=== PATIENT | female | born 1985 | race Caucasian/White ===

== ENCOUNTER 2019-03-14 11:48 | Day surgery (SDC) | payer OTHER ==
[2019-03-11 16:14] VITALS: BMI 26.6
[~2019-03-14 11:48] MED LIST: LIDOCAINE HCL 1%, 10 MG/ML (20ML VIAL) INF ONE
[2019-03-14] MEDS ORDERED: LIDOCAINE HCL 1%, 10 MG/ML (20ML VIAL) ONE (12:41)
[2019-03-14] MEDS ORDERED: MINERAL OIL 25 ML OIL ONE (13:01)
[2019-03-14] MEDS ORDERED: BACITRACIN 15 GM TUBE TOPICAL OINTMENT ONE (13:01)
[2019-03-14] MEDS ORDERED: PROPOFOL 20 ML ONE (14:00)
[2019-03-14] MEDS ORDERED: MIDAZOLAM HCL 2 MG/2 ML SINGLE DOSE VIAL ONE (14:01)
[2019-03-14] MEDS ORDERED: LIDOCAINE HCL 2% 100 MG/5 ML DISP.SYRIN ONE (14:29)
[2019-03-14] MEDS ORDERED: HYDROmorphone HCl 2 MG/ML VIAL ONE (14:41)
[2019-03-14] MEDS ORDERED: SUCCINYLCHOLINE CHLORIDE 200 MG/10 ML SYRINGE ONE (14:43)
[2019-03-14] MEDS ORDERED: LIDOCAINE HCL 1%, 10 MG/ML (20ML VIAL) INF ONE ×2 (14:44→14:54)
[2019-03-14] MEDS ORDERED: EPHEDRINE SULFATE/0.9% NACL/PF 50 MG/10 ML SYRINGE NR ONE (14:49)
[2019-03-14] MEDS ORDERED: BUPIVACAINE HCL/PF 0.25% (2.5MG/ML) 10 ML VIAL ONE (14:51)
[2019-03-14] MEDS ORDERED: BUPIVACAINE HCL/PF 0.25% (2.5MG/ML) 10 ML VIAL IJ ONE (14:54)
[2019-03-14] MEDS ORDERED: MINERAL OIL 25 ML OIL TP ONE (14:54)
[2019-03-14] MEDS ORDERED: oxyCODONE HCL 5 MG TABLET PO PRN (16:03)
[2019-03-14] MEDS ORDERED: ONDANSETRON 4 MG/2 ML VIAL IVPUSH PRN (16:03)
[2019-03-14] MEDS ORDERED: oxyCODONE HCL 5 MG TABLET PO ONE ×2 (16:15→16:35)
[2019-03-14] MEDS ORDERED: ACETAMINOPHEN 325 MG TABLET (FP) PO ONE (16:15)
[2019-03-14] MEDS ORDERED: LACTATED RINGERS SOLUTION 1,000 ML IV SCH (16:15)
[2019-03-14] MEDS ORDERED: oxyCODONE HCL 5 MG TABLET ONE (16:35)
[2019-03-14 17:19] VITALS: PULSE 83
[2019-03-14 18:03] VITALS: BP 136/79; TEMP 97.6
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
== END 2019-03-14 18:40 | disposition home or self-care (01) ==
LOC: JASUSAT 11:48
PROVIDERS: ATTEND Plastic Surgery
PROC: 0HB8XZZ Excision of Buttock Skin, External Approach (ICD-10-PCS; 2019-03-14)
PROC: 0JB70ZZ Excision of Back Subcutaneous Tissue and Fascia, Open Approach (ICD-10-PCS; 2019-03-14)
PROC: 0HR6X74 Replacement of Back Skin with Autologous Tissue Substitute, Partial Thickness, External Approach (ICD-10-PCS; principal; 2019-03-14 14:00)
DX: T21.33XA Burn of third degree of upper back, initial encounter (principal); T31.0 Burns involving less than 10% of body surface; X16.XXXA Contact with hot heating appliances, radiators and pipes, initial encounter; Y93.89 Activity, other specified; Y92.009 Unspecified place in unspecified non-institutional (private) residence as the place of occurrence of the external cause
CPT/HCPCS: 81025; 87070; 87205; 94760

== ENCOUNTER 2019-11-23 12:54 | Emergency (ER) | payer OTHER ==
[2019-11-23 13:00] VITALS: BP 111/75; PULSE 92; TEMP 98.3; BMI 29.0
[2019-11-23] MEDS ORDERED: diazePAM 5 MG TABLET PO ONE (14:26)
[2019-11-23] MEDS ORDERED: KETOROLAC TROMETHAMINE 60 MG/2 ML VIAL IM ONE (14:26)
[2019-11-23] MEDS ORDERED: KETOROLAC TROMETHAMINE 60 MG/2 ML VIAL ONE (14:27)
[2019-11-23] MEDS ORDERED: diazePAM 5 MG TABLET ONE (14:27)
--- NOTE | 2019-11-23 15:07 | PDOC ---
History of Present Illness - General Chief Complaint: Back Pain Stated Complaint: Fall, back pain Time Seen by Provider: 11/23/19 13:02 - History of Present Illness Initial Comments: 11/23/19 15:01 34-year-old female with mood disorder and GERD presents for evaluation of lower back pain with posterior lateral right right leg radicular symptoms no systemic symptoms no loss of bowel or bladder function or saddle paresthesias no urinary retention or incontinence Past History - Medical History Allergies/Adverse Reactions: Allergies Allergy/AdvReac Type Severity Reaction Status Date / Time Penicillins AdvReac Severe STOMACH Verified 11/23/19 13:00 PAIN lactose AdvReac Unknown ABDOMINAL Verified 11/23/19 13:00 PAIN Home Medications: Ambulatory Orders Clonazepam [Klonopin] 1 mg PO TID 04/06/15 Lamotrigine [Lamictal] 200 mg PO TID 04/06/15 Lansoprazole [Prevacid -] 30 mg PO DAILY 04/06/15 Norethindrone-Ethinyl Estrad [Alyacen 1-35 28 Tablet] 1 each PO DAILY 04/06/15 Cyclobenzaprine HCl 10 mg PO BID 03/11/19 Ergocalciferol (Vitamin D2) [Vitamin D2] 50,000 unit PO WEEKLY 03/11/19 Montelukast Sodium [Singulair] 10 mg PO DAILY 03/11/19 Oxybutynin Chloride [Ditropan Xl] 10 mg PO BID 03/11/19 Cyclobenzaprine HCl [Flexeril 10 mg] 10 mg PO HS PRN #10 tablet 11/23/19 Oxycodone HCl/Acetaminophen [Percocet 5-325 mg Tablet] 1 - 2 tab PO Q6H PRN #20 tab MDD 6 11/23/19 Anemia: No Asthma: Yes (STATES DOES GET CHEST PAIN WITH ASTHMA) Cancer: No Cardiac Disorders: No CVA: No COPD: No CHF: No Dementia: No Diabetes: No GI Disorders: Yes (GERD) Disorders: Yes (urgency) HTN: No Hypercholesterolemia: No Liver Disease: No Seizures: No Thyroid Disease: Yes (HYPERTHYROIDISM;OFF MEDS OVER 2 YEAR) - Surgical History Abdominal Surgery: No Appendectomy: No Cardiac Surgery: No Cholecystectomy: No Lung Surgery: No Neurologic Surgery: No Orthopedic Surgery: Yes (BACK SX 2016 l4-l5 laminectomy) - Reproductive History Is Patient Now?: No - Psycho-Social/Smoking History Smoking History: Never smoked Have you smoked in the past 12 months: Yes Number of Cigarettes Smoked Daily: 2 If you are a former smoker, when did you quit?: 2019 Information on smoking cessation initiated: No 'Breaking Loose' booklet given: 03/14/19 - Substance Abuse Hx (Audit-C & DAST Scrn) How often the patient has a drink containing alcohol: Never Score: In Men: 4 or > Positive; In Women: 3 or > Positive: 0 Screen Result (Pos requires Nsg. Audit-10AR): Negative In the last yr the pt used illegal drug/Rx for NonMed reason: No Score: Yes response is considered Positive: 0 Screen Result (Positive result requires Nsg. DAST-10): Negative Review of Systems - Review of Systems Constitutional: No: Fever Musculoskeletal: Yes: See HPI, Back Pain *Physical Exam - Vital Signs Last Vital Signs Temp Pulse Resp BP Pulse Ox 98.3 F 92 H 18 111/75 99 11/23/19 12:58 11/23/19 12:58 11/23/19 12:58 11/23/19 12:58 11/23/19 12:58 - Physical Exam 11/23/19 15:02 Lumbar spine skin color temperature normal range of motion is slightly decreased. No midline tenderness. Moderate bilateral paralumbar musculature spasm and tenderness 5 out of 5 strength bilateral lower extremities without gross sensorimotor deficits thighs and calves are soft and nontender neurovascular intact Well-healed midline incision General Appearance: Yes: Nourished, Appropriately Dressed. No: Apparent Distress ED Treatment Course - Medications Given in the ED: ED Medications Discontinued Medications Generic Name Dose Route Start Last Admin Trade Name Freq PRN Reason Stop Dose Admin Diazepam 5 mg 11/23/19 14:26 11/23/19 14:29 Valium - PO 11/23/19 14:27 5 mg ONCE ONE Administration Ketorolac Tromethamine 60 mg 11/23/19 14:26 11/23/19 14:29 Toradol Injection - IM 11/23/19 14:27 60 mg ONCE ONE Administration Oxycodone/Acetaminophen 2 combo 11/23/19 13:07 11/23/19 13:20 Percocet 5/325 - PO 11/23/19 13:08 2 combo ONCE ONE Administration Medical Decision Making - Medical Decision Making 11/23/19 15:07 Pain relieved with Toradol and Valium as well as Percocet follow-up with neurosurgery Percocet and Flexeril prescriptions given I have reviewed the pathophysiology with the patient. They are in agreement with the treatment plan all questions were answered to their satisfaction. Understanding for follow-up without fail was also conveyed to the patient. Again they are in agreement. Discharge - Discharge Information Problems reviewed: Yes Clinical Impression/Diagnosis: Lumbar radiculopathy Condition: Stable Disposition: HOME - Admission No - Additional Discharge Information Prescriptions: Cyclobenzaprine HCl [Flexeril 10 mg] 10 mg PO HS PRN #10 tablet PRN Reason: Muscle Spasms Oxycodone HCl/Acetaminophen [Percocet 5-325 mg Tablet] 1 - 2 tab PO Q6H PRN #20 tab MDD 6 PRN Reason: Pain - Follow up/Referral Referrals: Chepe Horta MD, MD [Primary Care Provider] - Davion Pimentel MD, FAANS [Staff Physician] - - Patient Discharge Instructions Additional Instructions: Please take the Percocet and Flexeril as directed and return to the emergency room should symptoms worsen. Without fail follow-up with neurosurgery in 1 to 2 days for further evaluation and treatment options. - Post Discharge Activity
== END 2019-11-23 15:27 | disposition home or self-care (01) ==
LOC: JERFT 12:54
PROC: 3E0233Z Introduction of Anti-inflammatory into Muscle, Percutaneous Approach (ICD-10-PCS; principal; 2019-11-23)
DX: M54.16 Radiculopathy, lumbar region (principal)
CPT/HCPCS: 99284-25